=== PATIENT | female | born 1990 | race Caucasian/White ===

== ENCOUNTER 2020-08-12 05:55 | Emergency (ER) | payer OTHER, SELFPAY ==
--- NOTE | ~2020-08-12 | CT_ITS ---
EXAMINATION: CT abdomen pelvis wo con DATE: 08/12/2020 07:37 INDICATION: Left flank pain. TECHNIQUE: Computed tomography (CT) of the abdomen and pelvis was performed without intravenous contr ast. Automated exposure control and iterative reconstruction technique were employed. The dose-length product was 336.24 mGy-cm. COMPARISON: None. FINDINGS: The visualized portions of the lung bases are clear without pneumonia or pleural effusion. The heart size is normal. No pericardial effusion. The liver, gallbladder, spleen, pancreas, and adre nal glands are normal. There is a 1 mm stone in right kidney. There is mild left hydronephrosis and h ydroureter. There is a 3 mm stone in distal left ureter. There are no dilated loops of bowel. The dre endix is normal. There are no pathologically enlarged lymph nodes. There is no free intraperitoneal f luid. There is mild lower lumbar spondylosis. IMPRESSION: 1. 3 mm stone in distal left ureter with mild left hydronephrosis and hydroureter. 2. 1 mm nonobstructing right kidney stone. Reviewed, dictated and finalized at location A. PER MAKER IMPRESSION: 1. 3 mm stone in distal left ureter with mild left hydronephrosis and hydrouret er. 2. 1 mm nonobstructing right kidney stone.
--- NOTE | ~2020-08-12 | XR_ITS ---
. EXAMINATION: XR abdomen/kub 1V DATE: 08/12/2020 08:10 INDICATION: Left flank pain. TECHNIQUE: A supine view of the abdomen on 2 radiographs was obtained. COMPARISON: CT abdomen and pelvis 08/12/2020 FINDINGS: There are no dilated loops of bowel. There are phleboliths in the pelvis. There is a 3 mm s tone in distal left ureter. IMPRESSION: 1. 3 mm stone in distal left ureter. Reviewed, dictated and finalized at location A. L ANALYST
[2020-08-12 05:58] VITALS: BP 123/95; PULSE 73; RESP 20; TEMP 37.2; O2SAT 100
[2020-08-12 06:01] VITALS: BP 116/77; PULSE 78; RESP 16; TEMP 36.7; O2SAT 100
[2020-08-12 06:18] LABS: Basophils Absolute Auto 0.1 K/mm3 (0.0-0.1); Basophils Percent Auto 0.9 % (0.2-1.2); Eosinophils Absolute Auto 0.5 K/mm3 (0-0.3); Eosinophils Percent Auto 6.3 % (0-4.4); Hematocrit 41.9 % (37.0-47.0); Hemoglobin 13.7 g/dL (12.0-15.0); Immature Granulocyte Absolute 0.02 K/mm3 (0.00-0.031); Immature Granulocyte Percent A 0.2 % (0-0.5); Lymphocytes Absolute Auto 3.02 K/mm3 (0.9-3.2); Lymphocytes Percent Auto 37.2 % (18.3-44.2); Mean Corpuscular HGB Conc 32.7 g/dl (32-36); Mean Corpuscular Hemoglobin 29.7 pg (26-34); Mean Corpuscular Volume 90.7 fl (80-100); Mean Platelet Volume 9.5 fl (7.4-10.4); Monocytes Absolute Auto 0.7 K/mm3 (0.1-0.6); Monocytes Percent Auto 8.8 % (2.6-8.5); Neutrophils Absolute Auto 3.8 K/mm3 (1.3-6.7); Neutrophils Percent Auto 46.6 % (45.5-73.1); Platelet Count Result 299 k/mm3 (150-375); Red Blood Count 4.62 M/mm3 (4.2-5.4); Red Cell Distribution Width 12.6 % (11.5-14.5); White Blood Count 8.1 K/mm3 (4.5-10.0)
[2020-08-12 06:37] LABS: Alanine Aminotransferase 16 U/L (4-35); Albumin Level 4.3 g/dL (3.5-5.1); Alkaline Phosphatase 48 U/L (38-126); Anion Gap 6 mmol/L (8-16); Aspartate Amino Transferase 30 U/L (14-36); Bilirubin,Total 0.6 mg/dL (0.2-1.3); Blood Urea Nitrogen 15 mg/dL (7-17); Calcium 9.3 mg/dL (8.4-10.2); Carbon Dioxide 26 mmol/L (22-30); Chloride 107 mmol/L (98-107); Estimated CRCL calculation 81 ml/min; Estimated Glomerular Filt Rate > 60; Glucose 111 mg/dL (65-105); Lipase 61 U/L (23-300); Potassium 4.4 mmol/L (3.4-5.0); Sodium 139 mmol/L (137-145)
--- NOTE | 2020-08-12 06:40 | ED.ABDPAIN ---
HPI - Abdominal Pain General Chief Complaint: Abdominal Pain <Jose Ochoa MD - Last Filed: 08/12/20 06:44> Stated Complaint: Lower back/ abd pain <Jose Ochoa MD - Last Filed: 08/12/20 06:44> Time Seen by Provider: 08/12/20 06:31 <Jose Ochoa MD - Last Filed: 08/12/20 06:44> Source: patient <Jose Ochoa MD - Last Filed: 08/12/20 06:44> Mode of arrival: ambulatory <Jose Ochoa MD - Last Filed: 08/12/20 06:44> Limitations: no limitations <Jose Ochoa MD - Last Filed: 08/12/20 06:44> History of Present Illness HPI narrative: Patient is a 30-year-old female complaining of left flank pain radiating to her left lower abdomen, 10 out of 10, sharp, accompanied by nausea that started early this morning. Patient denies any chest pain, shortness of breath, vomiting, diarrhea, urinary symptoms, fever or chills. <Jose Ochoa MD - Last Filed: 08/12/20 06:44> Related Data Home Medications: Home Medications Medication Instructions Recorded Confirmed No Home Medications 08/12/20 08/12/20 <Jose Ochoa MD - Last Filed: 08/12/20 06:44> Allergies/Adverse Reactions: Allergies Allergy/AdvReac Type Severity Reaction Status Date / Time amoxicillin Allergy Rash Verified 08/12/20 06:05 peanut Allergy Rash Verified 08/12/20 06:05 Sulfa (Sulfonamide AdvReac Vomiting Verified 08/12/20 06:05 Antibiotics) <Jose Ochoa MD - Last Filed: 08/12/20 06:44> Review of Systems Review of Systems: All systems reviewed & are unremarkable except as noted in HPI and below <Jose Ochoa MD - Last Filed: 08/12/20 06:44> Constitutional: Constitutional: Denies body ache(s), Denies chills, Denies excessive sweating, Denies fatigue, Denies fever(s), Denies headache(s), Denies lethargy, Denies malaise, Denies weakness and Denies weight loss <Jose Ochoa MD - Last Filed: 08/12/20 06:44> Eyes: Eyes: Denies blurry vision, Denies change in vision and Denies loss of vision <Jose Ochoa MD - Last Filed: 08/12/20 06:44> ENT: Denies dizziness, Denies ear discharge, Denies headache(s), Denies lip swelling, Denies epistaxis, Denies nasal congestion, Denies neck pain, Denies throat swelling and Denies tongue swelling <Jose Ochoa MD - Last Filed: 08/12/20 06:44> Cardiovascular: Cardiovascular: Denies chest pain, Denies chest pain at rest, Denies chest pain with activity, Denies diaphoresis, Denies rapid heart rate, Denies edema, Denies irregular heart rhythm, Denies lightheadedness, Denies palpitations, Denies dyspnea and Denies dyspnea on exertion <Jose Ochoa MD - Last Filed: 08/12/20 06:44> Respiratory: Respiratory: Denies chest congestion, Denies cough, Denies hemoptysis, Denies dyspnea and Denies dyspnea on exertion <Jose Ochoa MD - Last Filed: 08/12/20 06:44> Gastrointestinal: Gastrointestinal: Denies abdominal pain, Denies melena, Denies hematochezia, Denies diarrhea, Denies vomiting and Denies hematemesis <Jose Ochoa MD - Last Filed: 08/12/20 06:44> Musculoskeletal: Musculoskeletal: Denies abnormal gait, Denies deformity, Denies joint swelling, Denies limited range of motion, Denies neck pain and Denies numbness <Jose Ochoa MD - Last Filed: 08/12/20 06:44> Neurologic: Denies Abnormal speech present, Denies abnormal gait, Denies confusion, Denies dizziness, Denies headache(s), Denies focal weakness, Denies loss of vision, Denies numbness, Denies Other visual disturbances, Denies Sensory deficit (Neuro) and Denies weakness <Jose Ochoa MD - Last Filed: 08/12/20 06:44> Psychiatric: Psychiatric: Denies confusion, Denies depression, Denies auditory hallucinations, Denies homicidal ideation and Denies suicidal ideation <Jose Ochoa MD - Last Filed: 08/12/20 06:44> Endocrine: Endocrine: Denies cold intolerance, Denies excessive sweating, Denies fatigue, Denies heat intolera
[2020-08-12] MEDS: KETOROLAC 30 MG/ML VIAL (*BKC) IV PUSH (06:57)
[2020-08-12] MEDS: SODIUM CHLORIDE 0.9% IV 1,000 ML 999 ML IV CONT (07:00)
[2020-08-12] MEDS: PROMETHAZINE HCL 25 MG/ML AMPUL 12.5 MG IV PUSH (07:00)
[2020-08-12 07:11] LABS: Add Urine Microscopic? YES; Appearance Urine Clear (Clear); Bilirubin Urine Negative (Negative); Blood Urine 2+ (Negative); Color Urine Yellow (Yellow); Glucose Urine UA Negative (Negative); Ketones Urine Negative (Negative); Leukocyte Esterase Ur Negative LEU/UL (Negative); Mucus Urine Heavy /lpf; Nitrate Urine Negative (Negative); Protein Urine Negative (Negative); RBC Urine 0-2 /hpf (0-2); Specific Grav Ur 1.027 (1.001-1.035); Squamous Epithelial Cell Urine Many /hpf (Few); Urobilinogen Urine Negative mg/dL (<2.0); WBC Urine 0-3 /hpf
--- NOTE | 2020-08-12 07:27 | PC.NURSE ---
Assumed care of pt, pt is alert on stretcher, fluids infusing, discussed POC. Spouse at bedside.
--- NOTE | 2020-08-12 08:10 | PC.NURSE ---
Pt to XRAY via stretcher.
[2020-08-12] MEDS: TAMSULOSIN HCL 0.4 MG CAPSULE PO (08:27)
[2020-08-12] MEDS: HYDROcodone/acetaminophen (*CRX) 5-325 MG TABLET 1 TAB PO (08:27)
== END 2020-08-12 09:00 | disposition home or self-care (01) ==
LOC: ANHED 06:37
PROVIDERS: Emergency Provider Emergency Medicine; PCP Internal Medicine
DX: N13.2 Hydronephrosis with renal and ureteral calculous obstruction (principal)
CPT/HCPCS: 36415; 74018; 74176; 80053; 81001; 81025; 83690; 85025; 96361; 96374; 96375; 99284; A9270; J1885; J2550; J7030

== ENCOUNTER 2022-05-24 00:41 | Emergency (ER) | payer OTHER, SELFPAY ==
--- NOTE | ~2022-05-24 | CT_ITS ---
EXAMINATION: CT abdomen pelvis w con DATE: 05/24/2022 08:53 INDICATION: Lower abdominal pain TECHNIQUE: Computed tomography (CT) of the abdomen and pelvis was performed with 100 mL Omnipaque-350 intravenous contrast. Automated exposure control and iterative reconstruction technique were employe d. The dose-length product was 301.47 mGy-cm. COMPARISON: 08/12/2020 FINDINGS: Lung bases are clear. Heart size is normal. No pericardial or pleural effusion. Liver, gallbladder, s pleen, pancreas, bilateral adrenal glands and right kidney are normal. 9 mm left renal cyst. 5 mm nab othian cyst at the cervix. The bladder, anteverted uterus and right adnexa are normal. 1.6 cm periphe rally enhancing corpus luteum cyst at the left ovary. There are a few scattered colonic diverticula w ithout adjacent inflammatory change to suggest diverticular colitis. Small bowel and appendix are nor mal. No free intraperitoneal gas or fluid. No pathologically enlarged abdominal or pelvic lymphadenop athy. Bones are unremarkable. IMPRESSION: 1. Normal appendix. No acute abdominal/pelvic process. 2. 1.6 cm corpus luteum cyst in the left ovary. Reviewed, dictated and finalized at location A. D WING PILOT
--- NOTE | ~2022-05-24 | US_ITS ---
EXAMINATION: US pelvic complete w TV DATE: 05/24/2022 08:10 INDICATION: Low abdominal pain. Ovarian cyst. TECHNIQUE: Multiple transabdominal and transvaginal sonographic images of the pelvis were obtained. COMPARISON: CT abdomen and pelvis 08/12/2020 FINDINGS: TRANSABDOMINAL ULTRASOUND: The uterus measures 7.8 x 3.6 x 4.6 cm. There is no free fluid in the pelvis. TRANSVAGINAL ULTRASOUND: The endometrial complex measures 6 mm in thickness. There is an 8 mm nabothian cyst in the cervix. Th e right ovary measures 3.1 x 1.6 x 1.4 cm. The left ovary measures 2.9 x 1.5 x 1.4 cm. There is aurora l vascular flow in the ovaries. IMPRESSION: 1. Normal ovaries. Reviewed, dictated and finalized at location A. TILE SETTER IMPRESSION: 1. Normal ovaries.
[2022-05-24 00:45] VITALS: BP 133/78; PULSE 78; RESP 18; TEMP 36.2; O2SAT 100
[2022-05-24 06:01] LABS: Appearance Urine Clear (Clear); Bilirubin Urine Negative (Negative); Blood Urine Negative (Negative); Color Urine Yellow (Yellow); Glucose Urine UA Negative (Negative); Ketones Urine Negative (Negative); Leukocyte Esterase Ur Negative LEU/UL (Negative); Nitrate Urine Negative (Negative); Protein Urine Negative (Negative); Specific Grav Ur 1.025 (1.001-1.035); Urobilinogen Urine 0.2 mg/dL (<2.0); pH Urine 5.5 (5.0-9.0)
[2022-05-24 06:03] LABS: Pregnancy On Board Control Positive; Urine Pregnancy Test Negative
[2022-05-24 06:26] LABS: Basophils Absolute Auto 0.1 K/mm3 (0.0-0.1); Basophils Percent Auto 0.7 % (0.2-1.2); Eosinophils Absolute Auto 0.3 K/mm3 (0-0.3); Eosinophils Percent Auto 3.9 % (0-4.4); Hematocrit 43.6 % (37.0-47.0); Hemoglobin 14.3 g/dL (12.0-15.0); Immature Granulocyte Absolute 0.01 K/mm3 (0.00-0.031); Immature Granulocyte Percent A 0.1 % (0-0.5); Immature Platelet Fraction Pct 6.4 % (0.9-11.2); Lymphocytes Absolute Auto 2.18 K/mm3 (0.9-3.2); Lymphocytes Percent Auto 28.6 % (18.3-44.2); Mean Corpuscular HGB Conc 32.8 g/dl (32-36); Mean Corpuscular Hemoglobin 29.9 pg (26-34); Mean Platelet Volume 10.7 fl (7.4-10.4); Monocytes Absolute Auto 0.7 K/mm3 (0.1-0.6); Monocytes Percent Auto 8.9 % (2.6-8.5); Neutrophils Absolute Auto 4.4 K/mm3 (1.3-6.7); Neutrophils Percent Auto 57.8 % (45.5-73.1); Platelet Count Result 255 k/mm3 (150-375); Red Blood Count 4.79 M/mm3 (4.2-5.4); Red Cell Distribution Width 12.5 % (11.5-14.5); White Blood Count 7.6 K/mm3 (4.5-10.0)
[2022-05-24 06:43] LABS: Add Urine Microscopic? NO
[2022-05-24 06:54] LABS: Alanine Aminotransferase 22 U/L (6-35); Albumin Level 4.9 g/dL (3.5-5.1); Alkaline Phosphatase 63 U/L (38-126); Anion Gap 8 mmol/L (8-16); Aspartate Amino Transferase 23 U/L (14-36); Bilirubin,Total 0.7 mg/dL (0.2-1.3); Blood Urea Nitrogen 6 mg/dL (7-17); Calcium 9.5 mg/dL (8.4-10.2); Carbon Dioxide 28 mmol/L (22-30); Chloride 106 mmol/L (98-107); Estimated CRCL calculation 70 ml/min; Estimated Glomerular Filt Rate > 60; Glucose 86 mg/dL (65-110); Lipase 37 U/L (23-300); Potassium 4.2 mmol/L (3.4-5.0); Sodium 142 mmol/L (137-145)
[2022-05-24 07:00] LABS: Influenza A QL RT-PCR Negative (Negative); Influenza B QL RT-PCR Negative (Negative); RSV RNA, RT-PCR Negative (Negative); SARS-CoV-2 RNA PCR Negative
--- NOTE | 2022-05-24 07:10 | ED.GENADULT ---
HPI - General Adult General Chief complaint: Abdominal Pain Stated complaint: lower abd pain Time Seen by Provider: 05/24/22 06:51 History of Present Illness HPI narrative: 32-year-old female presenting to the emergency department for evaluation of cute onset of lower abdominal pain approximate 9 PM. Patient states the pain was bilateral lower abdomen and also suprapubic. Patient does have a prior history of kidney stones but states this does not feel like a kidney stone. Patient does have a remote history of ovarian cyst approximately 10 years ago and she is concerned that this may be the issue. Patient denies any associated nausea vomiting diarrhea. Patient denies any associated chest pain or shortness of breath. Patient denies any vaginal bleeding or vaginal discharge. Related Data Home Medications Medication Instructions Recorded Confirmed No Home Medications 08/12/20 08/12/20 Allergies Allergy/AdvReac Type Severity Reaction Status Date / Time amoxicillin Allergy Rash Verified 08/12/20 06:05 peanut Allergy Rash Verified 08/12/20 06:05 Sulfa (Sulfonamide AdvReac Vomiting Verified 08/12/20 06:05 Antibiotics) Review of Systems Review of Systems: CONSTITUTIONAL: Denies fever, chills, or sweats. EYES: Denies visual changes, redness, or discharge. ENT: Denies rhinorrhea, congestion, sore throat, or otalgia. CARDIOVASCULAR: Denies chest pain, palpitations, or edema. RESPIRATORY: Denies cough or dyspnea. GASTROINTESTINAL: See HPI GENITOURINARY: Denies dysuria or hematuria. SKIN: Denies rash or itching. MUSCULOSKELETAL: Denies back pain, joint pain, or myalgia. NEUROLOGIC: Denies headache, numbness, or weakness. PMFSH Social History Social History Gender identity (if verbalized by the patient): Female Exam Narrative: APPEARANCE: Well appearing, no pain, no distress, well-nourished. HEAD: normocephalic, atraumatic. EYES: PERRLA/EOMI, conjunctivae clear. NOSE: Normal no drainage NECK: Supple. No adenopathy, no masses. RESPIRATORY: Airway patent, respirations nonlabored. Clear to auscultation bilaterally, no rales, rhonchi, wheezing. CARDIOVASCULAR: Regular rate and rhythm without murmurs rubs or gallops. ABDOMINAL: No CVA tenderness to palpation, patient does have bilateral lower abdominal tenderness to palpation. MUSCULOSKELETAL: Moves all extremities. Strength/ROM intact, No edema, No calf tenderness. NEURO: Alert. Cranial nerves II through XII intact. Grossly intact SKIN: Warm, dry. Normal Color Course Course Emergency Course: Due to patient having a negative UA and pain reminiscent of her ovarian cyst and ultrasound was ordered to rule out ovarian cyst/ovarian torsion. Patient declined any pain medications. Ultrasound showed no evidence of torsion. Due to the patient still having pain a CT scan was ordered. CT scan did rule out acute appendicitis but did show an ovarian cyst on the left. Patient is afebrile with no leukocytosis. Patient's CMP is within normal limits. Patient's UA shows no evidence of urinary tract infection and patient's test is negative. Patient's influenza COVID and RSV were negative. Patient reports she did have an infection of her small bowel earlier in the year but patient symptoms are more localized to lower abdomen. Patient was updated the results of her work-up and was encouraged to have close follow-up with her primary care physician. All questions and concerns were addressed. Patient was comfortable with plan for discharge and close follow-up. Patient was also educated on reasons to return to the emergency room. Vital Signs Vital signs: Vital Signs Temperature 97.2 F L 05/24/22 00:45 Pulse Rate 78 05/24/22 00:45 Respiratory Rate 18 05/24/22 00:45 Blood Pressure 133/78 05/24/22 00:45 Pulse Oximetry 100 05/24/22 00:45 Oxygen Delivery Room Air 05/24/22 00:45 Temperature 97.2 F L
[2022-05-24 08:19] VITALS: BP 120/85; PULSE 88; RESP 16; O2SAT 99
== END 2022-05-24 10:25 | disposition home or self-care (01) ==
PROVIDERS: Emergency Medicine; Emergency Provider Emergency Medicine; PCP Internal Medicine
DX: R10.30 Lower abdominal pain, unspecified (principal); Z20.822 Contact with and (suspected) exposure to COVID-19
CPT/HCPCS: 36415; 74177; 76830; 76856; 80053; 81003; 81025; 83690; 83735; 85025; 85055; 87637; 99284; Q9967

== ENCOUNTER 2023-06-20 17:50 | Emergency (ER) | payer BC, SELFPAY ==
--- NOTE | ~2023-06-20 | US_ITS ---
EXAMINATION: US pelvic complete DATE: 06/20/2023 22:16 INDICATION: Right quadrant pain ovarian cyst evaluate torsion TECHNIQUE: Multiple transabdominal sonographic images of the pelvis were obtained. COMPARISON: CT abdomen pelvis, same date. FINDINGS: Uterus: 8.0 x 3.0 x 4.5 cm. Endometrial complex measures 11 mm. Right Ovary: 4.9 x 5.2 x 4.0 cm. Vascular flow is present. Simple appearing 4.9 and 2.4 cm simple rig ht ovarian cysts. Left Ovary: 2.0 x 2.0 x 1.9 cm. Vascular flow is present. There is no free fluid in the pelvis. IMPRESSION: Simple right ovarian cysts. No sonographic evidence of torsion. Reviewed, dictated and finalized at location K. H FINISHING RANGE BACK TENDER
--- NOTE | ~2023-06-20 | CT_ITS ---
EXAMINATION: CT abdomen pelvis wo con DATE: 06/20/2023 21:02 INDICATION: right flank pain hx of kidney stones TECHNIQUE: Computed tomography (CT) of the abdomen and pelvis was performed without intravenous contr ast. Automated exposure control and iterative reconstruction technique were employed. The dose-length product was 567.26 mGy-cm. COMPARISON: 05/24/2022; ultrasound pelvis 05/24/2022. FINDINGS: Lower thorax: Unremarkable Liver: Normal. Biliary/Gallbladder: Gallbladder is normal. No bile duct dilation. Pancreas: No mass or duct dilation. Spleen: Normal. Adrenals:No mass. Kidneys: No suspicious mass, obstructing stone, or hydronephrosis. Punctate left midpole calcificatio n. GI tract: No small or large bowel dilation. Normal appendix. Mesentery/Peritoneum: No ascites, mass, or free air. Retroperitoneum: No mass. Pelvis: Normal uterus and left ovary. 4.2 and 2.7 cm right ovarian cysts. Soft Tissues: Soft tissues and body wall unremarkable. Bones: No acute osseous finding. IMPRESSION: No acute abdominopelvic process detected. Specifically, there is no CT evidence of obstructive uropat hy. Incidental note of simple right ovarian cysts, measuring 4.2 cm and 2.7 cm. Reviewed, dictated and finalized at location K. SELOR EDUCATION PROFESSOR IMPRESSION: No acute abdominopelvic process detected. Specifically, there is no CT evidence of obstructive uropathy. Incidental note of simple right ovarian cysts, measuring 4.2 cm and 2.7 cm.
[2023-06-20 18:14] VITALS: BP 125/88; PULSE 78; RESP 18; TEMP 36.5; O2SAT 100
[2023-06-20 20:39] VITALS: BP 133/85; PULSE 74; RESP 15; O2SAT 99
[2023-06-20 20:55] LABS: Basophils Percent Auto 0.4 % (0.2-1.2); Eosinophils Absolute Auto 0.3 K/mm3 (0-0.3); Hematocrit 41.3 % (37.0-47.0); Hemoglobin 13.1 g/dL (12.0-15.0); Immature Granulocyte Absolute 0.06 K/mm3 (0.00-0.031); Immature Granulocyte Percent A 0.5 % (0-0.5); Lymphocytes Absolute Auto 3.47 K/mm3 (0.9-3.2); Lymphocytes Percent Auto 30.8 % (18.3-44.2); Mean Corpuscular HGB Conc 31.7 g/dl (32-36); Mean Corpuscular Hemoglobin 28.4 pg (26-34); Mean Corpuscular Volume 89.6 fl (80-100); Mean Platelet Volume 9.1 fl (7.4-10.4); Monocytes Percent Auto 9.2 % (2.6-8.5); Neutrophils Absolute Auto 6.3 K/mm3 (1.3-6.7); Neutrophils Percent Auto 56.1 % (45.5-73.1); Platelet Count Result 349 k/mm3 (150-375); Red Blood Count 4.61 M/mm3 (4.2-5.4); Red Cell Distribution Width 12.7 % (11.5-14.5); White Blood Count 11.3 K/mm3 (4.5-10.0)
[2023-06-20] MEDS: SODIUM CHLORIDE 0.9% IV 1,000 ML 999 ML IV CONT (21:11)
[2023-06-20 21:12] LABS: Alanine Aminotransferase 22 U/L (6-35); Albumin Level 4.2 g/dL (3.5-5.1); Alkaline Phosphatase 71 U/L (38-126); Anion Gap 5 mmol/L (8-16); Aspartate Amino Transferase 24 U/L (14-36); Bilirubin,Total 0.4 mg/dL (0.2-1.3); Blood Urea Nitrogen 10 mg/dL (7-17); Calcium 9.4 mg/dL (8.4-10.2); Carbon Dioxide 28 mmol/L (22-30); Chloride 106 mmol/L (98-107); Estimated Glomerular Filt Rate > 60; Glucose 85 mg/dL (65-110); Lipase 58 U/L (23-300); Potassium 3.9 mmol/L (3.4-5.0); Sodium 139 mmol/L (137-145)
--- NOTE | 2023-06-20 21:51 | ED.GENADULT ---
HPI - General Adult General Chief complaint: Abdominal Pain Stated complaint: rt lower pelvis Time Seen by Provider: 06/20/23 20:40 History of Present Illness HPI narrative: Patient is a 33-year-old female who presents emergency department with chief complaint of right lower quadrant pain. The patient reports the pain started Monday reports that she had pain in her right flank area that radiated to right lower quadrant patient states that she has had some discomfort with urination the patient reports she has prior history of kidney stones and also has prior history of ovarian cyst. Related Data Home Medications Medication Instructions Recorded Confirmed No Home Medications 08/12/20 08/12/20 Allergies Allergy/AdvReac Type Severity Reaction Status Date / Time amoxicillin Allergy Rash Verified 06/20/23 20:47 peanut Allergy Rash Verified 06/20/23 20:47 Sulfa (Sulfonamide AdvReac Vomiting Verified 06/20/23 20:47 Antibiotics) Review of Systems Review of Systems: A 10 system review of systems was completed on the patient and is negative except for what is stated in the HPI. Nursing and ancillary documentation was reviewed. [facility] Social History Social History Gender identity (if verbalized by the patient): Female Exam Narrative: GENERAL: Well-appearing, well-nourished, and in no acute distress. HEAD: Normocephalic, atraumatic. EYES: PERRLA and EOMI. ENT: Nares clear, no rhinorrhea or epistaxis. Mucous membranes moist. NECK: Supple. CHEST: Clear to auscultation. No respiratory distress. HEART: Regular rate and rhythm. No murmur heard. Normal peripheral pulses. ABDOMEN: Soft, nontender, nondistended, normal active bowel sounds. EXTREMITIES: Normal range of motion. No edema. SKIN: Warm, dry, no rash. NEURO: No focal deficits. Alert and oriented x3. PSYCH: Normal mood and affect. Course Vital Signs Vital signs: Vital Signs Temperature 36.5 C 06/20/23 18:14 Pulse Rate 78 06/20/23 18:14 Respiratory Rate 18 06/20/23 18:14 Blood Pressure 125/88 06/20/23 18:14 Pulse Oximetry 100 06/20/23 18:14 Oxygen Delivery Room Air 06/20/23 18:14 Temperature 36.5 C 06/20/23 18:14 Pulse Rate 64 06/20/23 22:10 Respiratory Rate 18 06/20/23 22:10 Blood Pressure 119/81 06/20/23 22:10 Pulse Oximetry 99 06/20/23 22:10 Oxygen Delivery Room Air 06/20/23 18:14 Medical Decision Making MDM Narrative Medical decision making narrative: Differential diagnosis includes nephrolithiasis, ureterolithiasis, UTI, pyelonephritis, ovarian cyst, ovarian torsion CT scan showed no evidence of ureterolithiasis there was evidence of ovarian cyst Given the patient is having fairly significant pain the patient underwent ultrasound that showed just evidence of simple cyst no evidence of ovarian torsion Vital Signs Vital Signs: Vital Signs Temperature 36.5 C 06/20/23 18:14 Pulse Rate 78 06/20/23 18:14 Respiratory Rate 18 06/20/23 18:14 Blood Pressure 125/88 06/20/23 18:14 Pulse Oximetry 100 06/20/23 18:14 Oxygen Delivery Room Air 06/20/23 18:14 Temperature 36.5 C 06/20/23 18:14 Pulse Rate 64 06/20/23 22:10 Respiratory Rate 18 06/20/23 22:10 Blood Pressure 119/81 06/20/23 22:10 Pulse Oximetry 99 06/20/23 22:10 Oxygen Delivery Room Air 06/20/23 18:14 Lab Data 06/20/23 20:48 06/20/23 20:48 Labs: Lab Results 06/20/23 Range/Units 20:48 WBC 11.3 H (4.5-10.0) K/mm3 RBC 4.61 (4.2-5.4) M/mm3 Hgb 13.1 (12.0-15.0) g/dL Hct 41.3 (37.0-47.0) % MCV 89.6 (80-100) fl MCH 28.4 (26-34) pg MCHC 31.7 L (32-36) g/dl RDW 12.7 (11.5-14.5) % Plt Count 349 (150-375) k/mm3 MPV 9.1 (7.4-10.4) fl Immature Gran % (Auto) 0.5 (0-0.5) % Neut % (Auto) 56.1 (45.5-73.1) % Lymph % (Auto) 30.8 (18.3-44.2) % Clark % (Auto)
[2023-06-20 21:58] LABS: Add Urine Microscopic? NO; Appearance Urine Clear (Clear); Color Urine Yellow (Yellow); Protein Urine Negative (Negative)
--- NOTE | 2023-06-20 21:58 | PC.NURSE ---
Pt to u/s via w/c at this time.
[2023-06-20 21:59] LABS: Bilirubin Urine Negative (Negative); Blood Urine Negative (Negative); Glucose Urine UA Negative (Negative); Ketones Urine Negative (Negative); Leukocyte Esterase Ur Negative LEU/UL (Negative); Nitrate Urine Negative (Negative); Urobilinogen Urine 0.2 mg/dL (<2.0)
[2023-06-20] MEDS: KETOROLAC 30 MG/ML VIAL (*BKC) IV PUSH (22:09)
[2023-06-20 22:10] VITALS: BP 119/81; PULSE 64; RESP 18; O2SAT 99
== END 2023-06-20 23:27 | disposition home or self-care (01) ==
PROVIDERS: Emergency Medicine; Emergency Provider Emergency Medicine; PCP Internal Medicine
DX: N83.201 Unspecified ovarian cyst, right side (principal); R10.30 Lower abdominal pain, unspecified
CPT/HCPCS: 36415; 74176; 76856; 80053; 81003; 81025; 83690; 85025; 96361; 96374; 99284; J1885; J7030